=== PATIENT | male | born 1965 | race Caucasian/White ===

== ENCOUNTER 2016-04-15 05:45 | Inpatient (IN) | payer OTHER ==
[~2016-04-15] VITALS: Ht 182.9 cm; Wt 105.5 kg
[~2016-04-15 05:45] MED LIST: BUPR8TAB4 SL; CeFAZolin 2 GM/DEXTROSE 50 ML IV ONE; DEXAMETHASONE SOD PHOS 4 MG/ML VIAL IVP ONE; FentaNYL CITRATE-PF 100 MCG/2 ML VIAL IVP ONE; GABA-531 PO; HYDROmorphone 2 MG/ML SYRINGE IVP ONE; LIDOCAINE HCL/PF 2% 5 ML VIAL IM ONE; METOPROLOL TARTRATE 5 MG/5 ML VIAL IVP ONE; MIDAZOLAM HCL 2 MG/2 ML VIAL IVP ONE; ONDANSETRON HCL 4 MG/2 ML VIAL IVP ONE; PROPOFOL 1% 20 ML VIAL IVP ONE; ROCURONIUM BROMIDE 10 MG/ML 5 ML VIAL IVP ONE; SUCCINYLCHOLINE CHLORIDE 20 MG/ML 10 ML VIAL IVP ONE
[2016-04-15] MEDS ORDERED: CeFAZolin 2 GM/DEXTROSE 50 ML IV ONE (05:46)
[2016-04-15] MEDS ORDERED: RINGERS SOLUTION,LACTATED 1,000 ML IV ONE ×3 (05:46→07:56)
[2016-04-15 06:13] LABS: BASOPHILS # (AUTO) 0.04 K/uL (0.00-0.20); BASOPHILS % (AUTO) 0.6 % (0.0-2.0); EOSINOPHILS # (AUTO) 0.13 K/uL (0.00-0.70); EOSINOPHILS % (AUTO) 1.62 % (1.0-6.0); HEMATOCRIT 40.6 % (41-53); HEMOGLOBIN 13.7 g/dL (13.5-17.5); LYMPHOCYTES # (AUTO) 1.8 K/uL (1.0-4.8); LYMPHOCYTES % (AUTO) 21.7 % (22.0-44.0); MEAN CORPUSCULAR HEMOGLOBIN 29.1 pg (26.0-34.0); MEAN CORPUSCULAR HGB CONC 33.7 G/dL (31.0-37.0); MEAN CORPUSCULAR VOLUME 86 fL (80-100); MONOCYTES # (AUTO) 0.4 K/uL (0.1-1.0); MONOCYTES % (AUTO) 5.3 % (2.0-9.0); NEUTROPHILS # (AUTO) 5.8 K/uL (1.8-7.7); NEUTROPHILS % (AUTO) 70.8 % (40.0-70.0); PLATELET COUNT (AUTO) 294 K/uL (150-450); RED BLOOD CELL COUNT(AUTO) 4.71 MIL/uL (4.50-5.90); RED CELL DISTRIBUTION WIDTH 15.1 % (11.5-14.5); WHITE BLOOD COUNT (AUTO) 8.1 K/uL (4.5-11.0)
[2016-04-15 06:22] LABS: ANION GAP 6 mmol/L (8-16); CARBON DIOXIDE 29 mmol/L (22-29); CHLORIDE 102 mmol/L (98-107); CREATININE 0.86 mg/dL (0.60-1.30); GLOMERULAR FILTR. RATE CALC > 60 mL/min (>60); POTASSIUM 4.1 mmol/L (3.5-5.1); SODIUM SERUM 137 mmol/L (136-145); UREA NITROGEN, BLOOD 23 mg/dL (7-18)
[2016-04-15 06:24] LABS: PROTHROMBIN TIME 10.6 SEC (9.4-11.6)
[2016-04-15 06:28] LABS: ALANINE AMINOTRANSFERASE 33 U/L (12-78); ASPARTATE AMINOTRANSFERASE 26 U/L (15-37); BILIRUBIN,TOTAL 0.2 mg/dL (0.1-1.0); TOTAL PROTEIN, SERUM 7.8 g/dL (6.4-8.2)
[2016-04-15] MEDS ORDERED: SODIUM CL IRRIG SOLN BAG 6,000 ML IRRIG ONE (06:49)
[2016-04-15] MEDS ORDERED: BUPIVACAINE HCL/PF 0.5% 30 ML VIAL ONE (06:59)
[2016-04-15] MEDS ORDERED: MICROFIBRILLAR COLLAGEN 1 GM PACKAGE TP ONE (07:56)
[2016-04-15] MEDS ORDERED: HYDROmorphone 2 MG/ML SYRINGE IVP PRN (08:00)
[2016-04-15] MEDS ORDERED: BUPIVACAINE LIPOSOME/PF 1.3%-13.3MG/ML SUSPENSION 20 ML VIAL INJ ONE (08:00)
[2016-04-15] MEDS ORDERED: MEPERIDINE-PF 25 MG/ML SYRINGE IVP PRN (08:00)
[2016-04-15] MEDS ORDERED: MUPIROCIN CALCIUM 2% 22 GM OINTMENT ONE (08:27)
[2016-04-15] MEDS ORDERED: GUM MASTIC/STORAX/MSAL/ALCOHOL LIQUID 0.67 ML VIAL TP ONE ×2 (08:27→08:52)
[2016-04-15] MEDS ORDERED: BUPIVACAINE HCL/PF 0.25% 30 ML VIAL ONE (08:48)
[2016-04-15] MEDS ORDERED: HYDROmorphone 2 MG/ML SYRINGE ONE ×3 (08:51→09:18)
[2016-04-15] MEDS ORDERED: HYDROmorphone 2 MG/ML SYRINGE IVP ONE (09:30)
[2016-04-15] MEDS ORDERED: ACETAMINOPHEN 1000 MG/ISO-OSM 100 ML IV ONE (09:46)
[2016-04-15] MEDS ORDERED: FentaNYL CITRATE-PF 100 MCG/2 ML VIAL ONE ×2 (09:46→10:00)
[2016-04-15] MEDS: FentaNYL CITRATE-PF 100 MCG/2 ML VIAL IVP PRN ×3 (09:48→09:59)
[2016-04-15] MEDS: ACETAMINOPHEN 1000 MG/ISO-OSM 100 ML IV SCH ×3 (09:51→21:45)
[2016-04-15 10:52] VITALS: BP 131/94
[2016-04-15] MEDS: HYDROmorphone 2 MG/ML SYRINGE IVP PRN ×3 (10:58→17:39)
[2016-04-15 14:52] VITALS: BP 141/95
[2016-04-15] MEDS: CeFAZolin 1 GM/DEXTROSE 50 ML IV SCH ×2 (15:54→23:56)
[2016-04-15] MEDS: GABAPENTIN 300 MG CAPSULE PO SCH ×2 (16:02→20:27)
[2016-04-15] MEDS ORDERED: HYDROmorphone HCL 50 MG/NS/PF 100 ML IV PRN ×2 (18:15→19:02)
[2016-04-15 18:52] VITALS: BP 148/86
[2016-04-15] MEDS ORDERED: DEXTROSE 5%-0.45% SODIUM CHL 1,000 ML IV PRN (18:55)
[2016-04-15] MEDS ORDERED: DiphenhydrAMINE HCL 50 MG/ML VIAL IVP PRN (19:00)
[2016-04-15] MEDS ORDERED: NALOXONE HCL 0.4 MG/ML VIAL IM PRN (19:00)
[2016-04-15] MEDS ORDERED: PROMETHAZINE HCL 25 MG/ML VIAL IM PRN (19:00)
[2016-04-15] MEDS ORDERED: ONDANSETRON HCL 4 MG/2 ML VIAL IVP PRN (19:00)
[2016-04-15] MEDS ORDERED: NALOXONE HCL 0.4 MG/ML VIAL IVP PRN (19:00)
[2016-04-15 19:46] VITALS: BP 142/78
[2016-04-15] MEDS: OXYGEN THERAPY IH SCH (20:00)
[2016-04-16] VITALS: BP 131/65
[2016-04-16] MEDS: ACETAMINOPHEN 1000 MG/ISO-OSM 100 ML IV SCH (05:11)
[2016-04-16 05:15] VITALS: BP 152/86
[2016-04-16] MEDS: OXYGEN THERAPY IH SCH (08:00)
[2016-04-16 08:10] VITALS: BP 153/85
[2016-04-16] MEDS ORDERED: ENOXAPARIN SODIUM 40 MG/0.4 ML PF SYRINGE SQ ONE (09:00)
[2016-04-16] MEDS: GABAPENTIN 300 MG CAPSULE PO SCH (10:23)
[2016-04-16] MEDS ORDERED: ASPI325T PO (10:38)
[2016-04-16] MEDS ORDERED: OXYC10TA89 PO (10:41)
[2016-04-16] MEDS ORDERED: OXYC10IR PO (10:45)
[2016-04-16] MEDS ORDERED: OxyCODONE HCL 10 MG ER TABLET PO SCH (11:30)
[2016-04-16] MEDS ORDERED: OxyCODONE HCL 5 MG IR TABLET PO PRN (11:30)
[2016-04-16 11:45] VITALS: BP 152/89
== END 2016-04-16 13:12 | disposition home or self-care (01) | DRG 489 ==
LOC: SURGERY 05:45 → 4E 05:46
PROVIDERS: ADMIT Hospitalist; ATTEND Orthopaedic Surgery
PROC: 0QBC0ZZ Excision of Left Lower Femur, Open Approach (ICD-10-PCS; 2016-04-15)
PROC: 0MBP0ZZ Excision of Left Knee Bursa and Ligament, Open Approach (ICD-10-PCS; 2016-04-15)
PROC: 0SBD0ZZ Excision of Left Knee Joint, Open Approach (ICD-10-PCS; 2016-04-15)
PROC: 0MQP0ZZ Repair Left Knee Bursa and Ligament, Open Approach (ICD-10-PCS; principal; 2016-04-15 07:15)
DX: D49.2 Neoplasm of unspecified behavior of bone, soft tissue, and skin (principal); M65.9 Synovitis and tenosynovitis, unspecified; M25.462 Effusion, left knee; M23.204 Derangement of unspecified medial meniscus due to old tear or injury, left knee; I10 Essential (primary) hypertension; M23.262 Derangement of other lateral meniscus due to old tear or injury, left knee; Z98.890 Other specified postprocedural states; Z79.899 Other long term (current) drug therapy
CPT/HCPCS: 87081; 88304; 88305; 88311; 97162; 97166; C9290; J0131; J0330; J0690; J1100; J1170; J1650; J2250; J2405; J2704; J3010; J3490; J7120